=== PATIENT | male | born 1975 | race Caucasian/White ===

== ENCOUNTER 2024-07-22 08:30 | Outpatient (CLI) | payer OTHER, SELFPAY | END 2024-07-22 08:31 | disposition home or self-care (01) | LOC: NFLDREF 07-24 02:42 | PROVIDERS: PCP Family Medicine; Referring Provider Family Medicine; Visit Provider Family Medicine | DX: Z00.00 Encounter for general adult medical examination without abnormal findings (principal); N40.1 Benign prostatic hyperplasia with lower urinary tract symptoms; R35.1 Nocturia; D64.9 Anemia, unspecified; R35.0 Frequency of micturition; R53.83 Other fatigue; Z11.3 Encounter for screening for infections with a predominantly sexual mode of transmission | CPT/HCPCS: 80053; 80061; 84270; 84402; 84403; 86694; 86695; 86696; 86703; G0103 ==

== ENCOUNTER 2024-08-11 10:32 | Outpatient (CLI) | payer OTHER, SELFPAY ==
--- NOTE | 2024-08-11 11:59 | W.ANESCHARGE ---
Anesthesia Charges Start Date/Time Anesthesia Start Date: 08/11/24 Anesthesia Start Time: 11:29 Stop Date/Time Anesthesia Stop Date: 08/11/24 Anesthesia Stop Time: 11:54
--- NOTE | 2024-08-11 12:54 | W.ANESCHARGE ---
Anesthesia Charges Start Date/Time Anesthesia Start Date: 08/11/24 Anesthesia Start Time: 11:29 Stop Date/Time Anesthesia Stop Date: 08/11/24 Anesthesia Stop Time: 11:54
== END 2024-08-11 10:33 | disposition home or self-care (01) ==
LOC: OP CLINIC 10:32
PROVIDERS: PCP Family Medicine; Visit Provider Surgery
DX: Z12.11 Encounter for screening for malignant neoplasm of colon (principal); K57.30 Diverticulosis of large intestine without perforation or abscess without bleeding
CPT/HCPCS: 00811; 00812; 45378; J2704